=== PATIENT | female | born 2000 | race Caucasian/White ===

== ENCOUNTER 2021-07-08 20:23 | Emergency (ER) | payer SELFPAY ==
--- NOTE | ~2021-07-08 | CT_ITS ---
EXAMINATION: CT abdomen pelvis w con INDICATION: Abdominal pain and nausea TECHNIQUE: Computed tomographic images of the abdomen and pelvis were obtained after the administrati on of 100 cc of Omnipaque 350 intravenous contrast. The dose-length product (DLP) was 181.85 mGy-cm. Automated exposure control and iterative reconstruction technique were employed. COMPARISON: 04/18/2005 FINDINGS: The lung bases are clear. The heart size is normal. The liver, spleen, pancreas, gallbladde r, and adrenal glands are normal. The kidneys are unremarkable. No pathologically enlarged abdominal or pelvic lymph nodes are identified. There is no free intraperitoneal gas or evidence of bowel obstr uction. There is a 13.4 x 10.1 x 7.9 cm predominantly cystic mass of the pelvis with apparent periphe ral fat and calcification at the superolateral aspect on the left. The mass exerts mass effect on the uterus and urinary bladder. The visualized osseous structures are unremarkable. IMPRESSION: 1. 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 Nonemergent PRACTICAL NURSING INSTRUCTOR follow-up for surgical evaluation is recommended. Reviewed, dictated and finalized at location [facility]. [facility] IMPRESSION: 1. 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 Nonemergent PRACTICAL NURSING INSTRUCTOR follow- up for surgical evaluation is recommended.
--- NOTE | ~2021-07-08 | XR_ITS ---
EXAMINATION: XR chest 1V portable INDICATION: Generalized chest pain TECHNIQUE: Portable AP chest at 2241 hours COMPARISON: 09/21/2017 FINDINGS: The lungs are free of acute opacities. There is no pleural effusion or pneumothorax. The ca rdiomediastinal silhouette is normal. IMPRESSION: 1. No acute cardiopulmonary abnormality. Reviewed, dictated and finalized at location [facility]. [facility] CHEMIST
[2021-07-08 21:07] VITALS: BP 124/67; PULSE 70; RESP 21; TEMP 36.9; O2SAT 99
--- NOTE | 2021-07-08 22:20 | ECG_ITS ---
Measurements Intervals [place] Rate: 65 P: 69 OR: 122 QRS: 83 QRSD: 90 T: 67 QT: 448 QTc: 467 Interpretive Statements SINUS RHYTHM WITH SINUS ARRHYTHMIA BORDERLINE T WAVE ABNORMALITY- ANTERIOR LEADS BASELINE ARTIFACT- I, III, V2 BORDERLINE ECG Electronically Signed On 07-09-2021 6:50:31 TELECOMMUNICATIONS ANALYST by Av Mace D.O.
[2021-07-08] MEDS: PANTOPRAZOLE SODIUM IV 40 MG VIAL IV PUSH (22:27)
[2021-07-08] MEDS: ONDANSETRON INJ 4 MG/2 ML VIAL IV PUSH ×2 (22:27→23:52)
[2021-07-08] MEDS: SODIUM CHLORIDE 0.9% IV 1,000 ML 999 ML IV CONT (22:27)
[2021-07-08 22:50] LABS: Basophils Absolute Auto 0.03 K/mm3 (0.00-0.10); Basophils Percent Auto 0.3 % (0.0-1.0); Hematocrit 36.1 % (35.0-49.0); Hemoglobin 11.4 g/dL (12.0-15.0); Immature Granulocyte Absolute 0.06 K/mm3 (0.00-0.00); Immature Granulocyte Percent A 0.5 % (0.0-0.0); Lymphocytes Absolute Auto 0.64 K/mm3 (1.10-4.50); Lymphocytes Percent Auto 5.7 % (18.0-42.0); Mean Corpuscular HGB Conc 31.6 g/dL (32.0-36.0); Mean Corpuscular Hemoglobin 26.5 pg (27.0-31.0); Mean Platelet Volume 9.6 fl (9.2-11.8); Monocytes Absolute Auto 0.66 K/mm3 (0.10-0.90); Monocytes Percent Auto 5.9 % (2.0-11.0); Neutrophils Absolute Auto 9.8 K/mm3 (1.7-7.2); Neutrophils Percent Auto 87.6 % (50.0-70.0); Platelet Count Result 346 K/mm3 (150-420); Red Cell Distribution Width 15.3 % (11.6-14.4); White Blood Count 11.2 K/mm3 (4.8-10.8)
[2021-07-08 22:51] LABS: Add Urine Microscopic? YES; Appearance Urine Sl Cloudy (Clear); Bilirubin Urine Negative (Negative); Blood Urine Negative (Negative); Color Urine Yellow (Yellow); Glucose Urine UA Negative (Negative); Ketones Urine 3+ (Negative); Leukocyte Esterase Ur Negative (Negative); Nitrate Urine Negative (Negative); Protein Urine Trace (Negative); pH Urine 7.5 (5.0-8.0)
[2021-07-08 22:56] LABS: Bacteria Urine Trace /hpf; Mucus Urine Few /lpf; RBC Urine 0-2 /hpf (0-2); Squamous Epithelial Cell Urine Moderate /hpf (Few); WBC Urine 0-3 /hpf (0-3)
[2021-07-08 22:57] LABS: SPREG INTERNAL CONTROL Positive; Serum Qual hCG Negative
[2021-07-08 23:00] LABS: Amphetamine Screen Urine Negative (Negative); Barbiturate Screen Urine Negative (Negative); Benzodiazepines Screen Urine Negative (Negative); Cannabinoid Screen Urine Positive (Negative); Cocaine Screen Urine Negative (Negative); Methadone Screen Urine Negative (Negative); Opiate Screen Urine Negative (Negative); Phencyclidine Screen Urine Negative (Negative)
[2021-07-08 23:10] LABS: Alanine Aminotransferase 10 U/L (14-59); Albumin Level 4.1 g/dL (3.4-5.0); Alkaline Phosphatase 27 U/L (46-116); Anion Gap 12 mmol/L (8-16); Aspartate Amino Transferase 10 U/L (15-37); Bilirubin,Total 0.5 mg/dL (0.00-1.00); Blood Urea Nitrogen 13 mg/dL (7-18); Calcium 9.1 mg/dL (8.5-10.1); Carbon Dioxide 23 mmol/L (21-32); Chloride 106 mmol/L (98-108); Estimated CRCL calculation 58 ml/min; Estimated Glomerular Filt Rate > 60; Glucose 129 mg/dL (70-99); Osmolality Calculated 294 mOsm/kg (285-295); Potassium 3.6 mmol/L (3.5-5.1); Sodium 141 mmol/L (136-145); Total Protein 7.2 g/dL (6.4-8.2)
[2021-07-08 23:11] LABS: Ethanol < 3 mg/dL (0-6); Troponin I 5.2 ng/L (0.00-60.4)
[2021-07-08 23:26] LABS: Lactic Acid Reflex 2.3 mmol/L (0.4-2.0)
[2021-07-08] MEDS: SODIUM CHLORIDE 0.9% IV 1,000 ML 150 ML IV CONT (23:51)
--- NOTE | 2021-07-09 01:13 | ED.NAVMDI ---
HPI - Nausea/Vomiting/Diarrhea General Chief complaint: Nausea/Vomiting/Diarrhea Stated complaint: nausea, body aches Time Seen by Provider: 07/08/21 20:27 Source: patient and RN notes reviewed Mode of arrival: ambulatory Limitations: no limitations History of Present Illness MD elicited complaint: nausea, vomiting and diarrhea Onset (ago): day(s) (1) Description of vomiting: watery Description of diarrhea: watery Associated nausea: Yes Associated abdominal pain: Yes Location of pain: diffuse Radiation: diffuse Pain consistency: constant Severity: mild Pain scale (0-10): 3 Quality: cramping, aching and dull Exacerbating factors: none Relieving factors: none Associated symptoms: denies other symptoms, loss of appetite and nausea/vomiting Related Data Allergies Allergy/AdvReac Type Severity Reaction Status Date / Time amoxicillin Allergy Swelling Verified 07/08/21 21:21 Review of Systems Review of Systems: All systems reviewed & are unremarkable except as noted in HPI and below Gastrointestinal: Gastrointestinal: Reports diarrhea, Reports nausea and Reports vomiting PMFSH Past Medical History Medical History Gastroenteritis Gastroenteritis Exam Const: General: no acute distress and alert Nutritional Appearance: thin Orientation/consciousness: patient oriented x3 Limitations: no limitations HENMT: Head: normal to inspection Ears: external ears normal and TM's normal bilaterally General nose exam: Normal external nose present and Normal nares present Face and sinus: normal facial exam Mouth: Yes lip normal and Yes moist mucous membranes Teeth and gingiva: dentition normal Eyes: Cornea: corneas normal Pupils: Equal, round and reactive pupils present EOM: EOMs intact bilaterally Neck: Neck: normal visual inspection Resp: Effort & Inspection: normal respiratory effort Auscultation: clear to auscultation bilaterally Cardio: Rate: regular rate Rhythm: regular rhythm GI: GI Palp: Yes Soft to palpation and No Tenderness to palpation present (GI) Auscultation: normal bowel sounds : General: Yes bladder normal to palpation and Yes no CVA tenderness Back/Spine/Pelvis: Back: no CVA tenderness Skin: General skin exam: normal color Rashes: no rashes Neuro: General: patient oriented x3, moves all extremities, no meningeal signs, no focal motor deficits and CN's II-XI intact bilaterally Extrem: General: normal to inspection and no pedal edema Psych: Appearance: grossly normal and well kempt Mental Status: mental status grossly normal Affect: normal affect Attitude: cooperative Thought content: Yes Normal thought content present Course Course Emergency Course: Pt was stable in the ED with no acute GI loss Reevaluation(s) Date: 07/08/21 Time: 21:23 Vital Signs Vital signs: Vital Signs Temperature 36.9 C 07/08/21 21:07 Pulse Rate 70 07/08/21 21:07 Respiratory Rate 21 H 07/08/21 21:07 Blood Pressure 124/67 07/08/21 21:07 Pulse Oximetry 99 07/08/21 21:07 Temperature 36.4 C 07/09/21 02:00 Pulse Rate 75 07/09/21 02:00 Respiratory Rate 18 07/09/21 02:00 Blood Pressure 104/67 07/09/21 02:00 Pulse Oximetry 98 07/09/21 02:00 MDM - Nausea/Vomiting/Diarrhea Differential Diagnosis Differential diagnosis: Likely gastroenteritis Medical Records Attestation: I reviewed the patient's medical records. Lab Data Attestation: I reviewed the patient's lab results. Result diagrams: 07/08/21 22:44 07/08/21 22:44 Labs: Lab Results 07/08/21 07/08/21 07/08/21 Range/Units 22:44 22:44 22:44 WBC 11.2 H (4.8-10.8) K/mm3 RBC 4.30 (4.20-5.40) M/mm3 Hgb 11.4 L (12.0-15.0) g/dL Hct 36.1 (35.0-49.0) % MCV 84.0 (78.0-102.0) fL MCH 26.5 L (27.0-31.0) pg MCHC 31.6 L (32.0-36.0) g/dL RDW 15.3 H (11.6-14.4) % Plt Count 346 (150-420) K/mm3 MPV 9.6 (
[2021-07-09] MEDS: KETOROLAC 30 MG/ML VIAL (*BKC) IM (01:14)
[2021-07-09] MEDS: PROMETHAZINE HCL 25 MG/ML AMPUL IM (01:39)
[2021-07-09 01:45] LABS: Reflex Lactic Acid Yes or No Add Lactic
[2021-07-09 02:00] VITALS: BP 104/67; PULSE 75; RESP 18; TEMP 36.4; O2SAT 98
== END 2021-07-09 02:09 | disposition home or self-care (01) ==
PROVIDERS: Emergency Provider Emergency Medicine
DX: K52.9 Noninfective gastroenteritis and colitis, unspecified (principal); E86.0 Dehydration
CPT/HCPCS: 36415; 71045; 74177; 80053; 80307; 81001; 83605; 84484; 84703; 85025; 93005; 96361; 96372; 96374; 96375; 96376; 99283; 99284; C9113; J1885; J2405; J2550; J7030; Q9967